=== PATIENT | female | born 1945 | race Caucasian/White ===

== ENCOUNTER 2017-01-27 11:36 | Emergency (ER) | payer MEDICARE ==
--- NOTE | 2017-01-27 11:40 | UC ---
Dizzy HPI HPI Summary: 71 YEAR OLD FEMALE PRESENTS WITH COMPLAINS OF WORSENING VERTIGO. - History Of Current Complaint Stated Complaint: VERTIGO Time Seen by Provider: 01/27/17 11:39 - Allergies/Home Medications Allergies/Adverse Reactions: Allergies Allergy/AdvReac Type Severity Reaction Status Date / Time Amoxicillin Allergy Rash Verified 01/27/17 11:43 Home Medications: Home Medications Estradiol (NF) 0.5 mg PO DAILY 01/27/17 [History Confirmed 01/27/17] Meclizine TAB* [Antivert 12.5 TAB*] 2 tab PO ONCE 01/27/17 [History Confirmed ] diPHENhydraMINE PO* [Benadryl PO 25 MG TAB*] 25 mg PO Q6H PRN 01/27/17 [History Confirmed 01/27/17] PMH/Surg Hx/FS Hx/Imm Hx Previously Healthy: Yes - Surgical History Surgical History: Yes Surgery Procedure, Year, and Place: pelvic sling. hysterectomy. tubal ligation - Family History Known Family History: Positive: Hypertension - Social History Alcohol Use: None Substance Use Type: None Smoking Status (MU): Never Smoked Tobacco Review of Systems Constitutional: Negative Skin: Negative Eyes: Negative ENT: Negative Respiratory: Negative Cardiovascular: Negative Gastrointestinal: Negative Genitourinary: Negative Motor: Negative Neurovascular: Negative Musculoskeletal: Negative Neurological: Other - VERTIGO Psychological: Negative All Other Systems Reviewed And Are Negative: Yes Physical Exam Triage Information Reviewed: Yes Vital Signs Reviewed: Yes Eye Exam: Normal ENT Exam: Normal Dental Exam: Normal Neck exam: Normal Neck: Positive: 1 Respiratory Exam: Normal Cardiovascular Exam: Normal Abdominal Exam: Normal Musculoskeletal Exam: Normal Neurological: Positive: Fatigued, Lethargic, Other: - VERTIGO Psychological Exam: Normal Skin Exam: Normal Dizzy Course/Dx - Differential Dx/Diagnosis Provider Diagnoses: VERTIGO Discharge - Discharge Plan Condition: Stable Disposition: HOME Patient Education Materials: Vertigo (ED) Referrals: Non Staff,Doctor [Primary Care Provider] - If Needed Additional Instructions: PLEASE GO TO ER TO RULE OUT STROKE.
[2017-01-27 11:44] VITALS: BP 124/72
== END 2017-01-27 12:00 | disposition home or self-care (01) ==
LOC: UCCORT 11:36
DX: R42 Dizziness and giddiness (principal); Z88.1 Allergy status to other antibiotic agents
CPT/HCPCS: 99211; G0463